=== PATIENT | male | born 1965 | race Caucasian/White ===

== ENCOUNTER 2024-07-21 16:58 | Emergency (ER) | payer OTHER, SELFPAY ==
[2024-07-21 17:03] VITALS: BP 181/100
[2024-07-21 17:27] LABS: % Basophils 0.4 % (0-2); % Eosinophils 1.3 % (0-6); % Immature Granulocytes 0.2 % (0-0.5); % Lymphocytes 21.1 % (20.5-51.1); % Monocytes 15.2 % (1.7-9.3); % Neutrophils 61.8 % (42.2-75.2); Absolute Eosinophils 0.1 10^3/uL (0-0.7); Absolute Monocytes 0.7 10^3/uL (0.1-0.6); Absolute Neutrophils 2.8 10^3/uL (1.4-6.5); Hematocrit 42.9 % (39.0-52.0); Hemoglobin 15.1 g/dL (13.0-18.0); Mean Corp Hgb Conc. 35.2 g/dL (33.0-37.0); Mean Corpuscular Hgb 28.2 pg (27.0-31.0); Mean Platelet Volume 9.2 fL (7.4-10.4); Nucleated Red Blood Cells % 0 % (-); Platelet Count 225 10^3/uL (130-400); Red Blood Cell Count 5.36 10^6/uL (4.70-6.10); Red Cell Dist. Width 12.7 % (11.5-14.5); White Blood Cell Count 4.6 10^3/uL (4.8-10.8)
[2024-07-21 17:37] LABS: ALT (SGPT) 26 U/L (0-50); AST (SGOT) 23 U/L (17-59); Albumin 4.6 g/dl (3.5-5.0); Alkaline Phosphatase 94 U/L (38-126); Blood Urea Nitrogen 11 mg/dl (9-20); Calcium 9.3 mg/dl (8.4-10.2); Carbon Dioxide 26 mmol/L (22-30); Chloride 102 mmol/L (98-107); Glucose 93 mg/dl (70-99); Potassium 4.1 mmol/L (3.5-5.1); Sodium 142 mmol/L (135-145); Total Bilirubin 0.6 mg/dl (0.2-1.3); Total Protein 6.9 g/dl (6.3-8.2); eGFR > 60.00
[2024-07-21 17:50] LABS: Troponin I < 0.012 ng/ml
--- NOTE | 2024-07-21 19:09 | ED.GENMED ---
History of Present Illness
General
Chief Complaint: Chest Pain
Source: patient
Exam Limitations: none
Time Seen by Provider: 07/21/24 18:44
History of Present Illness
History of Present Illness:
This is a 59 year old male that comes in with c/o severe chest pain. States that on Friday he had sever chest and abd pain. State that his stomach was like a soft ball and he thought maybe it was an ulcer attack or food poisoning. States that he
vomited 3 times very forceful. Yesterday was recovery day and he did feel hot but his temp never went above 99.0. States that he was sweaty. States that today he had tightness across his upper chest but there was no radiation. States that he was at
work and his coworker told him he looked gallegos and was out of it. States that he has discomfort with deep breathing. Denies any fever, chills, SOB, abd pain, nausea, vomiting, diarrhea, headache, dizziness, urinary burning.
Past History
Past History
ED Past Medical History: Asthma
ED Past Surgical History: None
Social History
Tobacco: Non-smoker
Alcohol: Occasional
Personal: Partner (same sex Partner)
Living: with family
Employment: Employed
Review of Systems
Review of Systems
All Other Systems: ROS reviewed and negative except as documented in HPI and ROS
Constitutional: Reports no symptoms; Denies fever or chills
EENT: Reports no symptoms
Respiratory: Denies cough or trouble breathing
Cardiac: Reports chest pain
ABD/GI: Reports no symptoms; Denies abdominal pain, nausea, vomiting or diarrhea
: Reports no symptoms; Denies dysuria or urgency
Musculoskeletal: Reports no symptoms
Skin: Reports no symptoms
Neurological: Reports no symptoms; Denies dizzy or headache
Psychiatric: Reports no symptoms
Phy Exam
General Physical Exam
General Presentation: well appearing and no apparent distress
General age: appears stated age
General Skin: warm and dry
General Habitus: normal
General Mental: alert
General Hydration: appears well hydrated
ENT Exam
ENT Exam: TM's normal, pharynx normal and neck supple
Eye Exam
Eye Exam: EOMI
Cardiovascular Exam
Cardiovascular Exam: regular rate/rhythm, no edema, no murmur and normal peripheral pulses
Pulmonary Exam
Pulmonary Exam: lungs clear, no respiratory distress, no rales, chest non tender, no crackles, no rhonchi, no wheezing and no cough
Gastrointestinal Exam
Gastrointestinal Exam: normal bowel sounds, non tender, soft, no organomegaly, no pulsatile mass and non distended
Musculoskeletal Exam
Musculoskeletal Exam: full ROM and no edema
Skin Exam
Skin Exam: normal color, warm/dry, no rash and no petechia
Psychiatric Exam
Psychiatric Exam: normal mood/affect
Scores
Heart Score for Chest Pain Patients
STEMI patient?: No
History: Slightly or Non-Suspicious
ECG: Normal
Age: >45 - <65 years
Risk Factors: No Risk Factors
Troponin: </= Normal Limit
Heart Score for Chest Pain Patients: 1
Heart Score Risk: 2.5% MACE over next 6 weeks
Course
Orders/Labs/Results
Orders:
Orders
07/21/24 16:59
Electrocardiogram (*1) Urgent
Reason for Study: Chest Pain
EKG- Treatment ONCE
07/21/24 17:08
CR Chest - 2 Views Urgent
Comment:
Reason For Exam: chest pain
07/21/24 17:10
Complete Blood Count/With Diff Urgent
Comprehensive Metabolic Panel Urgent
Troponin I Urgent
07/21/24 19:08
EKG- Treatment ONCE
Pantoprazole [Protonix IV] 40 mg IV NOW STA
Sucralfate Suspension [Carafate Suspension] 1 gm PO NOW STA
07/21/24 19:32
COVID-19 Antigen Urgent
Source: Nasal Swab
D-Dimer Urgent
07/21/24 20:10
Electrocardiogram (*1) Urgent
Reason for Study: Chest Pain
Other Reason for Exam: Repeat with Troponin
07/21/24 20:17
Troponin I Urgent
Abnormal Lab Results
07/21/24
17:10
WBC 4.6 L 10^3/uL
(4.8-10.8)
Absolute Lymphs (auto) 1.0 L 10^3/uL
(1.2-3.4)
Absolute Monos (auto) 0.7 H 10^3/uL
(0.1-0.6)
Monocytes % 15.2 H %
(1.7-9.3)
07/21/24 17:10
07/21/24 17:10
WBC very slightly low. Troponin <0.012
d-DIMER <0.27, Second troponin <0.012, COVID negative.
Vital Signs
Initial and Last Documented VS:
Initial Vital Signs
Temp Pulse Resp BP Pulse Ox
98.3 F 72 18 181/100 99
07/21/24 17:03 07/21/24 17:03 07/21/24 17:03 07/21/24 17:03 07/21/24 17:03
Last Documented Vital Signs
Temp Pulse Resp BP Pulse Ox
98.3 F 58 16 134/92 98
07/21/24 17:03 07/21/24 20:36 07/21/24 20:36 07/21/24 20:36 07/21/24 20:36
MDM/Problems Addressed
Differential Diagnosis Includes:
GERD, Coronary syndrome
MDM/Problems Addressed:
This is a 59 year old male that comes in with c/o chest pain. State that this started on Friday with chest and abd pain and vomiting. Then yesterday was recovery day and he was sweaty last night. today he has chest tightness across the upper chest.
State that he does drink a lot of Coffee when questioned.
Will check labs, Chest x-ray, ECG and medicate for reflux
Back into see patient. Explained that his blood work is normal along with both Troponin and chest x-ray. Patient states that he still feels sore in the chest. Will place patient on Protonix and carafate and also place patient on the Cardiology hot.
Patient to return with increased or changing pain, or any other concerns.
Repeat ECG: rate 58, Sinus bradycardia. Left axis. Normal QRS, Negative for ischemia
Chronic conditions affecting care:
NA
Acute Exacerbation and/or Progression of Chronic Illness:
NA
*Radiology
Radiology exam reviewed: radiology read reviewed (Chest-No active cardiopulmonary disease. )
*Pulse Oximetry
Patient hypoxic: no
*EKG
Interpreted by ED Provider?: Yes
Heart Rate: 63
Rate: normal
Rhythm: sinus
[place]: left axis deviation
Interval: normal interval
QRS Pattern: normal QRS
Ischemia: no ischemia
*Die Out Worker Interpretation
Rate: Die Out Worker- N/A
*Critical Care Note
Total Time (30-74mins, 75-104mins- exclusive of procedures): Not Applicable
ED Attending Note
-
Portions of this chart may have been created with voice recognition software.� Occasional wrong word or��sound alike� substitutions may have occurred due to the inherent limitations of voice recognition software.
Discharge Plan
Departure
Patient Disposition: Home (Routine Discharge)
Date of Disposition: 07/21/24
Time of Disposition: 21:45
Patient with high blood pressure during this ER visit?: Yes
Condition: Good
Covid-19: Not Applicable
Discharge Problem:
Chest pain
Instructions: Acid Reflux and GERD in Adults (DC), Chest pain - Discharge instructions, Chest Pain DCA Follow Up, BLOOD PRESSURE
Prescriptions:
New
pantoprazole [Protonix] 40 mg tablet,delayed release (DR/EC)
40 mg PO DAILY Qty: 30 0RF
sucralfate [Carafate] 1 gram tablet
1 g PO ACHS Qty: 40 0RF
Rx Instructions:
Dissolve in 2tsp of water. Take 30min-1hour before meals and HS
No Action
oxycodone-acetaminophen 1 EACH tablet
1 ea PO QIDPRN PRN (Reason: pain) Qty: 12 0RF
ibuprofen 800 MG tablet
800 mg PO Q6HPRN PRN (Reason: pain with food) Qty: 20 0RF
Referrals:
UNKNOWN - PT DOES,NOT KNOW [Family Provider] -
Activity Restrictions/Additional Instructions:
As discussed, your blood work is normal along with your chest x-ray. You have been place on the cardiology hot line. This means that the [facility] office will call you tomorrow to get you in for further evaluation. You have also had 2
prescriptions sent to your Pharmacy. Please take as directed. Follow up with the family doctor. IF YOU HAVE INCREASED OR CHANGING PAIN, OR YOU HAVE ANY OTHER CONCERNS PLEASE RETURN TO THE EMERGENCY ROOM
Interventions
Interventions:
*Risk Screen - Suicide Last Done: 07/21/24 19:25
*General Assessment Last Done: 07/21/24 17:03
*Neglect/Abuse Screening Last Done: 07/21/24 19:25
*ED COVID-19 Vaccine History Last Done: 07/21/24 19:25
ED- Cardiac Assessment Last Done: 07/21/24 19:25
Discharge Date and Time
Print Language: DIVEHI
[2024-07-21] MEDS: PROTONIX IV 40 MG IV (19:26)
[2024-07-21] MEDS: CARAFATE SUSPENSION 1 GM PO (19:27)
[2024-07-21 19:52] LABS: COVID-19 Antigen Negative (Negative)
[2024-07-21 19:53] LABS: D-Dimer < 0.27 ug/mlFEU (0.00-0.50)
[2024-07-21 20:36] VITALS: BP 134/92
[2024-07-21 20:47] LABS: Troponin I < 0.012 ng/ml
== END 2024-07-21 21:59 | disposition home or self-care (01) ==
LOC: EMR 16:58
PROVIDERS: Clinical Nurse Specialist Family Health; Emergency Medicine; EMERGENCY PHYSICIAN Emergency Medicine
DX: R07.89 Other chest pain (principal); R10.9 Unspecified abdominal pain; R11.10 Vomiting, unspecified; Z11.52 Encounter for screening for COVID-19; R03.0 Elevated blood-pressure reading, without diagnosis of hypertension; J45.909 Unspecified asthma, uncomplicated
CPT/HCPCS: 99284; 96374; 71046; 80053; 84484; 85025; 85379; 87811; 93005